=== PATIENT | male | born 1975 | race Caucasian/White ===

== ENCOUNTER 2020-10-14 04:49 | Emergency (ER) | payer OTHER ==
[~2020-10-14] VITALS: Ht 170.2 cm; Wt 59.1 kg
[2020-10-14] MEDS ORDERED: AMLO-258 PO (05:29)
[2020-10-14] MEDS ORDERED: METF-960 PO (05:29)
[2020-10-14 05:30] LABS: BASOPHILS % (AUTO) 0.5 % (0.0-2.0); HEMATOCRIT 38.4 % (41-53); HEMOGLOBIN 12.9 g/dL (13.5-17.5); LYMPHOCYTES # (AUTO) 2.4 K/uL (1.0-4.8); LYMPHOCYTES % (AUTO) 23.1 % (22.0-44.0); MEAN CORPUSCULAR HEMOGLOBIN 30.1 pg (26.0-34.0); MEAN CORPUSCULAR HGB CONC 33.7 G/dL (31.0-37.0); MEAN CORPUSCULAR VOLUME 90 fL (80-100); MONOCYTES # (AUTO) 0.6 K/uL (0.1-1.0); MONOCYTES % (AUTO) 5.4 % (2.0-9.0); NEUTROPHILS # (AUTO) 7.3 K/uL (1.8-7.7); PLATELET COUNT (AUTO) 472 K/uL (150-450); RED BLOOD CELL COUNT(AUTO) 4.28 MIL/uL (4.50-5.90); RED CELL DISTRIBUTION WIDTH 13.7 % (11.5-14.5)
[2020-10-14] MEDS ORDERED: SODIUM CHLORIDE 0.9% 1,000 ML IV ONE (05:30)
[2020-10-14 05:37] LABS: ACETONE,BLOOD NEGATIVE (NEGATIVE)
[2020-10-14 05:41] LABS: APPEARANCE,URINE CLEAR (CLEAR); BILIRUBIN,URINE NEGATIVE (NEGATIVE); GLUCOSE, URINE (UA) >=1000 mg/dL (NEGATIVE); KETONES,URINE TRACE mg/dL (NEGATIVE); LEUKOCYTE ESTERASE ,URINE NEGATIVE (NEGATIVE); NITRATE,URINE NEGATIVE (NEGATIVE); OCCULT BLOOD,URINE TRACE (NEGATIVE); PH,URINE 5.5 (5.0-8.0); PROTEIN,URINE SEE CONFIRM (NEGATIVE); UROBILINOGEN,URINE 0.2 mg/dL (<=1.0)
[2020-10-14 05:45] LABS: ALANINE AMINOTRANSFERASE 26 U/L (12-78); ALBUMIN 2.9 g/dL (3.4-5.0); ALKALINE PHOSPHATASE 156 U/L (46-116); ANION GAP 9 mmol/L (8-16); ASPARTATE AMINOTRANSFERASE 18 U/L (15-37); BILIRUBIN,TOTAL 0.2 mg/dL (0.1-1.0); CALCIUM, TOTAL 8.7 mg/dL (8.8-10.5); CARBON DIOXIDE 25 mmol/L (22-29); CHLORIDE 96 mmol/L (98-107); CREATININE 1.63 mg/dL (0.60-1.30); GLOMERULAR FILTR. RATE CALC 46 mL/min (>60); POTASSIUM 4.1 mmol/L (3.5-5.1); SODIUM SERUM 130 mmol/L (136-145); TOTAL PROTEIN, SERUM 7.2 g/dL (6.4-8.2); UREA NITROGEN, BLOOD 28 mg/dL (7-18)
[2020-10-14 05:52] LABS: GLUCOSE,RANDOM 547 mg/dL (70-110)
[2020-10-14 06:11] LABS: BACTERIA,URINE None Seen /HPF (None Seen); SQUAMOUS EPITHELIAL CELL,UR Rare /LPF (None Seen); WBC,URINE 0-2 /HPF (0-5)
[2020-10-14 06:12] LABS: SULFOSALICYLIC ACID,URINE 4+ (Negative)
[2020-10-14] MEDS ORDERED: INSULIN REGULAR, HUMAN 100 UNITS/ML IVP ONE (06:30)
[2020-10-14] MEDS ORDERED: AmLODIPine BESYLATE 5 MG TABLET PO ONE (07:00)
[2020-10-14] MEDS ORDERED: MetFORMIN HCL 500 MG TABLET PO ONE ×2 (07:00→07:45)
[2020-10-14 07:30] VITALS: BP 138/68
[2020-10-14 07:38] LABS: GLUCOSE,POINT OF CARE 308 MG/DL (70-110)
== END 2020-10-14 07:49 | disposition home or self-care (01) ==
LOC: EMS 04:55
DX: E11.65 Type 2 diabetes mellitus with hyperglycemia (principal); I10 Essential (primary) hypertension; N28.9 Disorder of kidney and ureter, unspecified; Z79.84 Long term (current) use of oral hypoglycemic drugs
CPT/HCPCS: 36415; 80053; 81001; 82009; 82962; 85025; 96361; 96374; 99284; J1815; 81002

== ENCOUNTER 2020-11-29 12:15 | Inpatient (IN) | payer OTHER ==
[~2020-11-29] VITALS: Ht 165.1 cm; Wt 70.5 kg
[~2020-11-29 12:15] MED LIST: AMLO-258 PO; METF-960 PO
[2020-11-29 13:13] LABS: BASOPHILS % (AUTO) 0.3 % (0.0-2.0); EOSINOPHILS % (AUTO) 2.4 % (1.0-6.0); HEMATOCRIT 31.7 % (41-53); HEMOGLOBIN 10.7 g/dL (13.5-17.5); LYMPHOCYTES # (AUTO) 1.8 K/uL (1.0-4.8); LYMPHOCYTES % (AUTO) 20.4 % (22.0-44.0); MEAN CORPUSCULAR HEMOGLOBIN 29.8 pg (26.0-34.0); MEAN CORPUSCULAR HGB CONC 33.8 G/dL (31.0-37.0); MEAN CORPUSCULAR VOLUME 88 fL (80-100); MONOCYTES # (AUTO) 0.6 K/uL (0.1-1.0); MONOCYTES % (AUTO) 6.3 % (2.0-9.0); NEUTROPHILS # (AUTO) 6.3 K/uL (1.8-7.7); NEUTROPHILS % (AUTO) 70.6 % (40.0-70.0); PLATELET COUNT (AUTO) 472 K/uL (150-450); RED BLOOD CELL COUNT(AUTO) 3.59 MIL/uL (4.50-5.90); RED CELL DISTRIBUTION WIDTH 12.9 % (11.5-14.5)
[2020-11-29 13:22] LABS: PROTHROMBIN TIME 10.2 SEC (9.4-11.6)
[2020-11-29 13:24] LABS: CALCIUM, TOTAL 8.2 mg/dL (8.8-10.5); CREATININE 1.37 mg/dL (0.60-1.30); POTASSIUM 4.6 mmol/L (3.5-5.1)
[2020-11-29 13:29] LABS: ALBUMIN 1.4 g/dL (3.4-5.0); BILIRUBIN,TOTAL 0.1 mg/dL (0.1-1.0); C-REACTIVE PROTEIN QUANT 0.18 mg/dL (0.00-0.30); TOTAL PROTEIN, SERUM 5.4 g/dL (6.4-8.2)
[2020-11-29 13:32] LABS: LACTIC ACID 0.5 mmol/L (0.4-2.0)
[2020-11-29] MEDS ORDERED: DOXYCYCLINE HYCLATE 100 MG in DEXTROSE 5%-WATER 100 ML IV ONE (13:45)
[2020-11-29] MEDS ORDERED: SODIUM CHLORIDE 0.9% 1,000 ML IV ONE (13:45)
[2020-11-29] MEDS ORDERED: 0.9% SODIUM CHLORIDE 10 ML SYRINGE IVP PRN ×2 (14:15→15:15)
[2020-11-29] MEDS ORDERED: ONDANSETRON HCL 4 MG/2 ML VIAL IVP PRN ×2 (14:15→15:15)
[2020-11-29] MEDS ORDERED: ACETAMINOPHEN 325 MG TABLET PO PRN ×2 (14:15→15:15)
[2020-11-29 15:09] LABS: COVID AG,FIA SOURCE NASOPHARYNGEAL
[2020-11-29] MEDS ORDERED: BISACODYL 10 MG RECTAL RECTAL SUPPOSITORY PR PRN (15:15)
[2020-11-29] MEDS ORDERED: DOCUSATE SODIUM 100 MG/10 ML LIQUID UDCUP PO PRN (15:15)
[2020-11-29] MEDS ORDERED: DEXTROSE 50%-WATER 25 GM/50 ML SYRINGE IVP PRN (15:15)
[2020-11-29] MEDS ORDERED: IPRATROPIUM BROMIDE 0.5 MG/2.5 ML NEB SOLUTION NEB PRN (15:15)
[2020-11-29] MEDS ORDERED: ALBUTEROL SULFATE 2.5 MG/0.5 ML NEB SOLUTION NEB PRN (15:15)
[2020-11-29] MEDS ORDERED: MAGNESIUM HYDROXIDE SUSPENSION 30 ML UDCUP PO PRN (15:15)
[2020-11-29] MEDS ORDERED: VANCOMYCIN HCL 1.5 GM in DEXTROSE 5%-WATER 250 ML IV ONE (16:00)
[2020-11-29 16:07] VITALS: BP 157/80
[2020-11-29] MEDS: SODIUM CHLORIDE 0.9% 1,000 ML IV SCH (16:37)
[2020-11-29] MEDS: HEPARIN SODIUM,PORCINE 5,000 UNITS/ML VIAL SQ SCH (16:37)
[2020-11-29] MEDS: INSULIN LISPRO 100 UNITS/ML SQ PRN ×2 (18:01→20:49)
[2020-11-29 19:52] VITALS: BP 127/74
[2020-11-29] MEDS: CefTRIAXone 1 GM/DEXTROSE 50 ML IV SCH (20:18)
[2020-11-29 21:13] LABS: GLUCOMETER DEV NAME(LOC) 6S.1; GLUCOSE,POINT OF CARE 253 MG/DL (70-110)
[2020-11-29 21:13] LABS: GLUCOMETER DEV NAME(LOC) 6S.1; GLUCOSE,POINT OF CARE 179 MG/DL (70-110)
[2020-11-30] MEDS: HEPARIN SODIUM,PORCINE 5,000 UNITS/ML VIAL SQ SCH ×4 (00:11→23:45)
[2020-11-30 05:13] VITALS: BP 150/82
[2020-11-30] MEDS: INSULIN LISPRO 100 UNITS/ML SQ PRN ×5 (06:01→21:03)
[2020-11-30 06:43] LABS: GLUCOMETER DEV NAME(LOC) 6S.1; GLUCOSE,POINT OF CARE 171 MG/DL (70-110)
[2020-11-30 06:44] LABS: BASOPHILS % (AUTO) 0.4 % (0.0-2.0); EOSINOPHILS % (AUTO) 2.8 % (1.0-6.0); HEMATOCRIT 30.4 % (41-53); HEMOGLOBIN 10.4 g/dL (13.5-17.5); LYMPHOCYTES # (AUTO) 2.4 K/uL (1.0-4.8); LYMPHOCYTES % (AUTO) 28.9 % (22.0-44.0); MEAN CORPUSCULAR HEMOGLOBIN 29.9 pg (26.0-34.0); MEAN CORPUSCULAR HGB CONC 34.1 G/dL (31.0-37.0); MEAN CORPUSCULAR VOLUME 88 fL (80-100); MONOCYTES # (AUTO) 0.6 K/uL (0.1-1.0); MONOCYTES % (AUTO) 6.8 % (2.0-9.0); NEUTROPHILS # (AUTO) 5.2 K/uL (1.8-7.7); NEUTROPHILS % (AUTO) 61.1 % (40.0-70.0); PLATELET COUNT (AUTO) 440 K/uL (150-450); RED BLOOD CELL COUNT(AUTO) 3.47 MIL/uL (4.50-5.90); RED CELL DISTRIBUTION WIDTH 12.9 % (11.5-14.5)
[2020-11-30 06:57] LABS: ALANINE AMINOTRANSFERASE 13 U/L (12-78); ALBUMIN 1.3 g/dL (3.4-5.0); ALKALINE PHOSPHATASE 89 U/L (46-116); ANION GAP 6 mmol/L (8-16); ASPARTATE AMINOTRANSFERASE 15 U/L (15-37); BILIRUBIN,TOTAL 0.1 mg/dL (0.1-1.0); CALCIUM, TOTAL 7.8 mg/dL (8.8-10.5); CARBON DIOXIDE 27 mmol/L (22-29); CHLORIDE 111 mmol/L (98-107); CREATININE 1.06 mg/dL (0.60-1.30); GLOMERULAR FILTR. RATE CALC > 60 mL/min (>60); GLUCOSE,RANDOM 170 mg/dL (70-110); POTASSIUM 4.3 mmol/L (3.5-5.1); SODIUM SERUM 144 mmol/L (136-145); TOTAL PROTEIN, SERUM 5.1 g/dL (6.4-8.2); UREA NITROGEN, BLOOD 18 mg/dL (7-18)
[2020-11-30] MEDS ORDERED: VANCOMYCIN HCL 1 GM/D5% WATER 200 ML IV SCH (08:00)
[2020-11-30] MEDS: SODIUM CHLORIDE 0.9% 1,000 ML IV SCH ×2 (08:01→23:45)
[2020-11-30] MEDS: AmLODIPine BESYLATE 10 MG TABLET PO SCH (08:02)
[2020-11-30] MEDS: PANTOPRAZOLE SODIUM 40 MG DR TABLET PO SCH (08:02)
[2020-11-30 08:15] VITALS: BP 170/93
[2020-11-30 09:00] VITALS: BP 143/71
[2020-11-30 12:15] LABS: GLUCOMETER DEV NAME(LOC) 6N.1; GLUCOSE,POINT OF CARE 267 MG/DL (70-110)
[2020-11-30] MEDS: LISINOPRIL 5 MG TABLET PO SCH (12:30)
[2020-11-30] MEDS: VANCOMYCIN HCL 750 MG in DEXTROSE 5%-WATER 250 ML IV SCH ×2 (15:34→23:46)
[2020-11-30] MEDS: CefTRIAXone 1 GM/DEXTROSE 50 ML IV SCH (16:58)
[2020-11-30 18:31] LABS: GLUCOMETER DEV NAME(LOC) 6N.1; GLUCOSE,POINT OF CARE 315 MG/DL (70-110)
[2020-11-30 21:39] LABS: GLUCOMETER DEV NAME(LOC) 6N.1; GLUCOSE,POINT OF CARE 283 MG/DL (70-110)
[2020-12-01 04:31] VITALS: BP 144/68
[2020-12-01] MEDS: INSULIN LISPRO 100 UNITS/ML SQ PRN ×4 (05:35→20:12)
[2020-12-01 06:45] LABS: GLUCOMETER DEV NAME(LOC) 6S.1; GLUCOSE,POINT OF CARE 154 MG/DL (70-110)
[2020-12-01 07:15] LABS: BASOPHILS % (AUTO) 1.1 % (0.0-2.0); EOSINOPHILS % (AUTO) 2.7 % (1.0-6.0); HEMOGLOBIN 10.6 g/dL (13.5-17.5); LYMPHOCYTES # (AUTO) 2.7 K/uL (1.0-4.8); LYMPHOCYTES % (AUTO) 29.7 % (22.0-44.0); MEAN CORPUSCULAR HEMOGLOBIN 29.9 pg (26.0-34.0); MEAN CORPUSCULAR HGB CONC 34.3 G/dL (31.0-37.0); MEAN CORPUSCULAR VOLUME 87 fL (80-100); MONOCYTES # (AUTO) 0.5 K/uL (0.1-1.0); MONOCYTES % (AUTO) 5.5 % (2.0-9.0); NEUTROPHILS # (AUTO) 5.6 K/uL (1.8-7.7); PLATELET COUNT (AUTO) 437 K/uL (150-450); RED BLOOD CELL COUNT(AUTO) 3.56 MIL/uL (4.50-5.90); RED CELL DISTRIBUTION WIDTH 12.6 % (11.5-14.5)
[2020-12-01 07:59] LABS: ANION GAP 6 mmol/L (8-16); CALCIUM, TOTAL 7.8 mg/dL (8.8-10.5); CARBON DIOXIDE 24 mmol/L (22-29); CHLORIDE 109 mmol/L (98-107); CREATININE 1.14 mg/dL (0.60-1.30); GLOMERULAR FILTR. RATE CALC > 60 mL/min (>60); GLUCOSE,RANDOM 153 mg/dL (70-110); POTASSIUM 3.8 mmol/L (3.5-5.1); SODIUM SERUM 139 mmol/L (136-145); UREA NITROGEN, BLOOD 16 mg/dL (7-18); VANCOMYCIN,RANDOM 24.5 mcg/mL (25.0-50.0)
[2020-12-01 08:24] VITALS: BP 146/73
[2020-12-01] MEDS: ASCORBIC ACID 500 MG TABLET PO SCH (08:43)
[2020-12-01] MEDS: HEPARIN SODIUM,PORCINE 5,000 UNITS/ML VIAL SQ SCH ×3 (08:43→23:22)
[2020-12-01] MEDS: LISINOPRIL 5 MG TABLET PO SCH (08:43)
[2020-12-01] MEDS: PANTOPRAZOLE SODIUM 40 MG DR TABLET PO SCH (08:43)
[2020-12-01] MEDS: AmLODIPine BESYLATE 10 MG TABLET PO SCH (08:43)
[2020-12-01] MEDS: VANCOMYCIN HCL 750 MG in DEXTROSE 5%-WATER 250 ML IV SCH (08:44)
[2020-12-01 14:04] LABS: GLUCOMETER DEV NAME(LOC) 6S.1; GLUCOSE,POINT OF CARE 394 MG/DL (70-110)
[2020-12-01] MEDS: CefTRIAXone 1 GM/DEXTROSE 50 ML IV SCH (16:02)
[2020-12-01] MEDS: SODIUM CHLORIDE 0.9% 1,000 ML IV SCH ×2 (16:02→20:35)
[2020-12-01] MEDS: VANCOMYCIN HCL 1 GM/D5% WATER 200 ML IV SCH (20:05)
[2020-12-01 20:10] VITALS: BP 153/87
[2020-12-01 22:02] LABS: GLUCOMETER DEV NAME(LOC) 6N.1; GLUCOSE,POINT OF CARE 191 MG/DL (70-110)
[2020-12-01 23:12] LABS: GLUCOMETER DEV NAME(LOC) 6S.1; GLUCOSE,POINT OF CARE 235 MG/DL (70-110)
[2020-12-02 04:53] LABS: BASOPHILS % (AUTO) 0.4 % (0.0-2.0); EOSINOPHILS % (AUTO) 3.5 % (1.0-6.0); HEMATOCRIT 30.1 % (41-53); HEMOGLOBIN 10.4 g/dL (13.5-17.5); LYMPHOCYTES # (AUTO) 2.7 K/uL (1.0-4.8); LYMPHOCYTES % (AUTO) 32.1 % (22.0-44.0); MEAN CORPUSCULAR HEMOGLOBIN 30.3 pg (26.0-34.0); MEAN CORPUSCULAR HGB CONC 34.6 G/dL (31.0-37.0); MEAN CORPUSCULAR VOLUME 88 fL (80-100); MONOCYTES # (AUTO) 0.6 K/uL (0.1-1.0); MONOCYTES % (AUTO) 6.7 % (2.0-9.0); NEUTROPHILS # (AUTO) 4.8 K/uL (1.8-7.7); NEUTROPHILS % (AUTO) 57.3 % (40.0-70.0); PLATELET COUNT (AUTO) 427 K/uL (150-450); RED BLOOD CELL COUNT(AUTO) 3.43 MIL/uL (4.50-5.90); RED CELL DISTRIBUTION WIDTH 12.9 % (11.5-14.5)
[2020-12-02 05:00] LABS: ANION GAP 4 mmol/L (8-16); CALCIUM, TOTAL 7.7 mg/dL (8.8-10.5); CARBON DIOXIDE 27 mmol/L (22-29); CHLORIDE 109 mmol/L (98-107); CREATININE 1.17 mg/dL (0.60-1.30); GLOMERULAR FILTR. RATE CALC > 60 mL/min (>60); GLUCOSE,RANDOM 243 mg/dL (70-110); POTASSIUM 4.6 mmol/L (3.5-5.1); SODIUM SERUM 140 mmol/L (136-145); UREA NITROGEN, BLOOD 17 mg/dL (7-18)
[2020-12-02 05:33] VITALS: BP 146/84
[2020-12-02] MEDS: INSULIN LISPRO 100 UNITS/ML SQ PRN ×4 (05:34→20:02)
[2020-12-02 06:46] LABS: GLUCOMETER DEV NAME(LOC) 6S.1; GLUCOSE,POINT OF CARE 228 MG/DL (70-110)
[2020-12-02 07:30] VITALS: BP 158/83
[2020-12-02] MEDS: HEPARIN SODIUM,PORCINE 5,000 UNITS/ML VIAL SQ SCH ×3 (07:54→23:30)
[2020-12-02] MEDS: VANCOMYCIN HCL 1 GM/D5% WATER 200 ML IV SCH ×2 (07:55→20:01)
[2020-12-02] MEDS: SODIUM CHLORIDE 0.9% 1,000 ML IV SCH ×2 (07:55→23:30)
[2020-12-02] MEDS: AmLODIPine BESYLATE 10 MG TABLET PO SCH (08:00)
[2020-12-02] MEDS: LISINOPRIL 5 MG TABLET PO SCH ×2 (08:00→20:01)
[2020-12-02] MEDS: ASCORBIC ACID 500 MG TABLET PO SCH (08:00)
[2020-12-02] MEDS: PANTOPRAZOLE SODIUM 40 MG DR TABLET PO SCH (08:00)
[2020-12-02] MEDS: INSULIN GLARGINE,HUM.REC.ANLOG 100 UNITS/ML SQ SCH (08:01)
[2020-12-02 13:46] LABS: GLUCOMETER DEV NAME(LOC) 6S.1; GLUCOSE,POINT OF CARE 295 MG/DL (70-110)
[2020-12-02] MEDS: CefTRIAXone 1 GM/DEXTROSE 50 ML IV SCH (16:31)
[2020-12-02 19:04] VITALS: BP 142/78
[2020-12-02 19:22] LABS: GLUCOMETER DEV NAME(LOC) 6N.1; GLUCOSE,POINT OF CARE 235 MG/DL (70-110)
[2020-12-02 21:51] LABS: GLUCOMETER DEV NAME(LOC) 6N.1; GLUCOSE,POINT OF CARE 207 MG/DL (70-110)
[2020-12-03 04:32] VITALS: BP 150/80
[2020-12-03] MEDS: INSULIN LISPRO 100 UNITS/ML SQ PRN ×2 (05:55→11:42)
[2020-12-03 06:57] LABS: ANION GAP 7 mmol/L (8-16); CALCIUM, TOTAL 7.7 mg/dL (8.8-10.5); CARBON DIOXIDE 25 mmol/L (22-29); CHLORIDE 109 mmol/L (98-107); CREATININE 1.09 mg/dL (0.60-1.30); GLOMERULAR FILTR. RATE CALC > 60 mL/min (>60); GLUCOSE,RANDOM 207 mg/dL (70-110); POTASSIUM 3.9 mmol/L (3.5-5.1); SODIUM SERUM 141 mmol/L (136-145); UREA NITROGEN, BLOOD 23 mg/dL (7-18)
[2020-12-03 07:08] LABS: GLUCOMETER DEV NAME(LOC) 6N.1; GLUCOSE,POINT OF CARE 201 MG/DL (70-110)
[2020-12-03 08:34] VITALS: BP 145/68
[2020-12-03] MEDS: LISINOPRIL 5 MG TABLET PO SCH (08:50)
[2020-12-03] MEDS: HEPARIN SODIUM,PORCINE 5,000 UNITS/ML VIAL SQ SCH (08:50)
[2020-12-03] MEDS: ASCORBIC ACID 500 MG TABLET PO SCH (08:51)
[2020-12-03] MEDS: VANCOMYCIN HCL 1 GM/D5% WATER 200 ML IV SCH (08:51)
[2020-12-03] MEDS: PANTOPRAZOLE SODIUM 40 MG DR TABLET PO SCH (08:51)
[2020-12-03] MEDS: AmLODIPine BESYLATE 10 MG TABLET PO SCH (08:51)
[2020-12-03] MEDS: INSULIN GLARGINE,HUM.REC.ANLOG 100 UNITS/ML SQ SCH (08:53)
[2020-12-03] MEDS: SODIUM CHLORIDE 0.9% 1,000 ML IV SCH (13:01)
[2020-12-03] MEDS ORDERED: LISI-892 PO (13:57)
[2020-12-03] MEDS ORDERED: ASCO500 PO (13:57)
[2020-12-03] MEDS ORDERED: ACET-2247 PO (13:58)
[2020-12-03] MEDS ORDERED: DOXY-354 PO (13:59)
[2020-12-03] MEDS ORDERED: CEPH500C3 PO (13:59)
[2020-12-03 20:07] LABS: GLUCOMETER DEV NAME(LOC) 6S.1; GLUCOSE,POINT OF CARE 249 MG/DL (70-110)
== END 2020-12-03 14:40 | DRG 602 ==
LOC: EDUNIT# 12:15 → EMS 12:27 → 6S 14:32
PROVIDERS: ADMIT Internal Medicine; ATTEND Internal Medicine
DX: L03.116 Cellulitis of left lower limb (principal); E43 Unspecified severe protein-calorie malnutrition; N17.9 Acute kidney failure, unspecified; E11.65 Type 2 diabetes mellitus with hyperglycemia; Z20.822 Contact with and (suspected) exposure to COVID-19; D63.8 Anemia in other chronic diseases classified elsewhere; I11.9 Hypertensive heart disease without heart failure; Z68.25 Body mass index [BMI] 25.0-25.9, adult; Z79.84 Long term (current) use of oral hypoglycemic drugs
CPT/HCPCS: 80048; 80053; 80202; 82962; 83605; 84145; 85025; 85610; 86140; 93971; 96365; 99285; J0696; J1644; J1815; J3370; J3490; J7030; J7060

== ENCOUNTER 2021-06-28 14:45 | Inpatient (IN) | payer OTHER ==
[~2021-06-28] VITALS: Ht 160 cm; Wt 86.9 kg
[~2021-06-28 14:45] MED LIST changes: +ACET-2247 PO; +ASCO500 PO; +CEPH500C3 PO; +DOXY-354 PO; +LISI-892 PO; +METF-1211 PO; -METF-960 PO
[2021-06-28] MEDS ORDERED: GLUCAGON,HUMAN RECOMBINANT 1 MG VIAL IM PRN (15:30)
[2021-06-28] MEDS ORDERED: ONDANSETRON HCL 4 MG/2 ML VIAL IVP PRN (15:45)
[2021-06-28] MEDS ORDERED: ACETAMINOPHEN 325 MG TABLET PO PRN (15:45)
[2021-06-28 16:03] VITALS: BP 160/97
[2021-06-28] MEDS: HEPARIN SODIUM,PORCINE 5,000 UNITS/ML VIAL SQ SCH (16:23)
[2021-06-28] MEDS: LOSARTAN POTASSIUM 25 MG TABLET PO SCH (16:23)
[2021-06-28] MEDS ORDERED: INFLUENZA VIRUS VACCINE QVS 2021-22 (6MO+)/PF 60 MCG/0.5 ML SYRINGE IM. ONE (18:00)
[2021-06-28] MEDS ORDERED: PNEUMOCOCCAL VACCINE POLYVALENT 0.5 ML VIAL [PPSV23] IM. ONE (18:00)
[2021-06-28 18:19] LABS: CALCIUM, TOTAL 7.8 mg/dL (8.8-10.5); CREATININE 1.8 mg/dL (0.60-1.30)
[2021-06-28 19:11] LABS: GLUCOMETER DEV NAME(LOC) 6N.1; GLUCOSE,POINT OF CARE 92 MG/DL (70-110)
[2021-06-28] MEDS ORDERED: SODIUM CHLORIDE 0.9% 1,000 ML ONE (20:21)
[2021-06-28] MEDS: DOCUSATE SODIUM 100 MG CAPSULE PO SCH (20:24)
[2021-06-28] MEDS: LABETALOL HCL 100 MG TABLET PO SCH ×2 (20:24→20:25)
[2021-06-28] MEDS ORDERED: POTASSIUM CHLORIDE 20 MEQ ER TABLET PO PRN (20:30)
[2021-06-28 20:37] VITALS: BP 173/93
[2021-06-28] MEDS: POTASSIUM CHL 10 MEQ/WATER 50 ML IV PRN ×4 (20:41→22:46)
[2021-06-29] MEDS: HEPARIN SODIUM,PORCINE 5,000 UNITS/ML VIAL SQ SCH ×4 (00:38→23:34)
[2021-06-29 04:18] VITALS: BP 189/100
[2021-06-29] MEDS: LABETALOL HCL 100 MG TABLET PO SCH ×2 (05:16→20:50)
[2021-06-29] MEDS: LOSARTAN POTASSIUM 25 MG TABLET PO SCH (05:18)
[2021-06-29] MEDS: INSULIN LISPRO 100 UNITS/ML SQ PRN ×4 (05:25→20:45)
[2021-06-29 06:16] LABS: BASOPHILS % (AUTO) 0.8 % (0.0-2.0); EOSINOPHILS % (AUTO) 5.3 % (1.0-6.0); HEMATOCRIT 26.9 % (41-53); HEMOGLOBIN 9.1 g/dL (13.5-17.5); LYMPHOCYTES # (AUTO) 1.7 K/uL (1.0-4.8); LYMPHOCYTES % (AUTO) 31.2 % (22.0-44.0); MEAN CORPUSCULAR HEMOGLOBIN 28.9 pg (26.0-34.0); MEAN CORPUSCULAR HGB CONC 33.7 G/dL (31.0-37.0); MEAN CORPUSCULAR VOLUME 86 fL (80-100); MONOCYTES # (AUTO) 0.3 K/uL (0.1-1.0); MONOCYTES % (AUTO) 6.1 % (2.0-9.0); NEUTROPHILS # (AUTO) 3.1 K/uL (1.8-7.7); NEUTROPHILS % (AUTO) 56.6 % (40.0-70.0); PLATELET COUNT (AUTO) 387 K/uL (150-450); RED BLOOD CELL COUNT(AUTO) 3.14 MIL/uL (4.50-5.90); RED CELL DISTRIBUTION WIDTH 14.7 % (11.5-14.5)
[2021-06-29 06:31] LABS: CALCIUM, TOTAL 7.8 mg/dL (8.8-10.5); CREATININE 1.92 mg/dL (0.60-1.30); MAGNESIUM 2.2 mg/dL (1.80-2.40); PHOSPHORUS 4.3 mg/dL (2.5-4.9); POTASSIUM 3.5 mmol/L (3.5-5.1)
[2021-06-29 06:48] LABS: HEMOGLOBIN A1C 8.6 % (3.8-5.6)
[2021-06-29 07:36] LABS: GLUCOMETER DEV NAME(LOC) 6N.1; GLUCOSE,POINT OF CARE 168 MG/DL (70-110)
[2021-06-29 07:39] LABS: SODIUM,URINE RANDOM 46 mmol/l (20-110); UREA NITROGEN,URINE RANDOM 421 mg/dL (350-1000)
[2021-06-29 07:52] LABS: PROTEIN,URINE RANDOM 787 mg/dL (0-11.9)
[2021-06-29 08:05] LABS: BILIRUBIN,URINE NEGATIVE (NEGATIVE); GLUCOSE, URINE (UA) >=1000 mg/dL (NEGATIVE); KETONES,URINE NEGATIVE (NEGATIVE); LEUKOCYTE ESTERASE ,URINE NEGATIVE (NEGATIVE); NITRATE,URINE NEGATIVE (NEGATIVE); OCCULT BLOOD,URINE LARGE (NEGATIVE); PROTEIN,URINE SEE CONFIRM (NEGATIVE); UROBILINOGEN,URINE 0.2 mg/dL (<=1.0)
[2021-06-29 08:06] LABS: APPEARANCE,URINE SLIGHTLY CLOUDY (CLEAR)
[2021-06-29] MEDS: DOCUSATE SODIUM 100 MG CAPSULE PO SCH ×2 (08:45→20:48)
[2021-06-29] MEDS: FAMOTIDINE 20 MG TABLET PO SCH (08:45)
[2021-06-29 09:09] LABS: BACTERIA,URINE Many /HPF (None Seen); RBC,URINE 26-50 /HPF (0-2); SULFOSALICYLIC ACID,URINE 4+ (Negative); WBC,URINE 0-2 /HPF (0-5)
[2021-06-29 09:10] LABS: RENAL EPITHELIAL CELLS,URINE Few /LPF (None Seen)
[2021-06-29 09:18] VITALS: BP 140/72
[2021-06-29 15:36] LABS: GLUCOMETER DEV NAME(LOC) 4E.2; GLUCOSE,POINT OF CARE 183 MG/DL (70-110)
[2021-06-29 16:30] VITALS: BP 184/87
[2021-06-29 19:51] LABS: GLUCOMETER DEV NAME(LOC) 6N.2; GLUCOSE,POINT OF CARE 195 MG/DL (70-110)
[2021-06-29 19:55] VITALS: BP 199/103
[2021-06-29] MEDS: BUMETANIDE 0.25 MG/ML 10 ML VIAL IVP SCH (20:47)
[2021-06-29 21:31] LABS: GLUCOMETER DEV NAME(LOC) 6N.2; GLUCOSE,POINT OF CARE 195 MG/DL (70-110)
[2021-06-30 04:50] VITALS: BP 191/95
[2021-06-30] MEDS: LOSARTAN POTASSIUM 25 MG TABLET PO SCH (05:54)
[2021-06-30 06:17] LABS: GLUCOMETER DEV NAME(LOC) 4E.2; GLUCOSE,POINT OF CARE 133 MG/DL (70-110)
[2021-06-30 08:21] VITALS: BP 195/107
[2021-06-30] MEDS: HEPARIN SODIUM,PORCINE 5,000 UNITS/ML VIAL SQ SCH ×2 (09:15→16:38)
[2021-06-30] MEDS: FAMOTIDINE 20 MG TABLET PO SCH (09:15)
[2021-06-30] MEDS: LABETALOL HCL 100 MG TABLET PO SCH ×2 (09:15→20:43)
[2021-06-30] MEDS: DOCUSATE SODIUM 100 MG CAPSULE PO SCH ×2 (09:15→20:43)
[2021-06-30] MEDS: BUMETANIDE 0.25 MG/ML 10 ML VIAL IVP SCH ×2 (09:15→20:43)
[2021-06-30 11:05] LABS: PROTHROMBIN TIME 10.3 SEC (9.4-11.6)
[2021-06-30 11:22] VITALS: BP 187/89
[2021-06-30] MEDS: CloNIDine HCL 0.1 MG TABLET PO PRN (11:28)
[2021-06-30] MEDS: INSULIN LISPRO 100 UNITS/ML SQ PRN ×3 (11:30→20:54)
[2021-06-30 14:36] LABS: GLUCOMETER DEV NAME(LOC) 6N.2; GLUCOSE,POINT OF CARE 222 MG/DL (70-110)
[2021-06-30 16:13] VITALS: BP 164/90
[2021-06-30 19:46] LABS: GLUCOMETER DEV NAME(LOC) 6N.2; GLUCOSE,POINT OF CARE 221 MG/DL (70-110)
[2021-06-30 19:57] VITALS: BP 152/81
[2021-06-30 21:06] LABS: GLUCOMETER DEV NAME(LOC) 6N.1; GLUCOSE,POINT OF CARE 191 MG/DL (70-110)
[2021-07-01 04:45] VITALS: BP 185/94
[2021-07-01 07:36] LABS: GLUCOMETER DEV NAME(LOC) 4E.2; GLUCOSE,POINT OF CARE 156 MG/DL (70-110)
[2021-07-01 07:53] VITALS: BP 184/89
[2021-07-01] MEDS: HEPARIN SODIUM,PORCINE 5,000 UNITS/ML VIAL SQ SCH ×3 (08:00→17:28)
[2021-07-01] MEDS: LABETALOL HCL 100 MG TABLET PO SCH ×2 (10:19→20:16)
[2021-07-01] MEDS: FAMOTIDINE 20 MG TABLET PO SCH (10:19)
[2021-07-01] MEDS: BUMETANIDE 0.25 MG/ML 10 ML VIAL IVP SCH ×2 (10:19→20:15)
[2021-07-01] MEDS: DOCUSATE SODIUM 100 MG CAPSULE PO SCH ×2 (10:19→20:16)
[2021-07-01] MEDS: LOSARTAN POTASSIUM 25 MG TABLET PO SCH (10:19)
[2021-07-01 15:11] LABS: GLUCOMETER DEV NAME(LOC) 4E.2; GLUCOSE,POINT OF CARE 137 MG/DL (70-110)
[2021-07-01] MEDS: INSULIN LISPRO 100 UNITS/ML SQ PRN ×2 (17:17→20:16)
[2021-07-01 18:41] LABS: GLUCOMETER DEV NAME(LOC) 6N.2; GLUCOSE,POINT OF CARE 183 MG/DL (70-110)
[2021-07-01 19:10] VITALS: BP 173/94
[2021-07-02 02:50] LABS: GLUCOMETER DEV NAME(LOC) 6N.1; GLUCOSE,POINT OF CARE 180 MG/DL (70-110)
[2021-07-02 04:06] LABS: HEPATITIS C AB (EIA) <0.1 s/co ratio (0.0-0.9); HIV 1-2 SCREEN 4TH GEN W/RFLX Non Reactive (Non Reactive)
[2021-07-02 04:30] VITALS: BP 190/99
[2021-07-02] MEDS: CloNIDine HCL 0.1 MG TABLET PO PRN (06:18)
[2021-07-02] MEDS: INSULIN LISPRO 100 UNITS/ML SQ PRN ×3 (06:38→21:53)
[2021-07-02 07:17] LABS: BASOPHILS % (AUTO) 0.5 % (0.0-2.0); EOSINOPHILS % (AUTO) 5.9 % (1.0-6.0); HEMATOCRIT 28.5 % (41-53); HEMOGLOBIN 9.6 g/dL (13.5-17.5); LYMPHOCYTES # (AUTO) 1.6 K/uL (1.0-4.8); LYMPHOCYTES % (AUTO) 25.3 % (22.0-44.0); MEAN CORPUSCULAR HEMOGLOBIN 28.8 pg (26.0-34.0); MEAN CORPUSCULAR HGB CONC 33.7 G/dL (31.0-37.0); MEAN CORPUSCULAR VOLUME 85 fL (80-100); MONOCYTES # (AUTO) 0.4 K/uL (0.1-1.0); MONOCYTES % (AUTO) 6.9 % (2.0-9.0); NEUTROPHILS % (AUTO) 61.4 % (40.0-70.0); PLATELET COUNT (AUTO) 370 K/uL (150-450); RED BLOOD CELL COUNT(AUTO) 3.34 MIL/uL (4.50-5.90); RED CELL DISTRIBUTION WIDTH 14.8 % (11.5-14.5)
[2021-07-02 07:21] LABS: GLUCOMETER DEV NAME(LOC) 6N.2; GLUCOSE,POINT OF CARE 167 MG/DL (70-110)
[2021-07-02 07:27] LABS: CALCIUM, TOTAL 8.1 mg/dL (8.8-10.5); CREATININE 2.02 mg/dL (0.60-1.30)
[2021-07-02] MEDS: HEPARIN SODIUM,PORCINE 5,000 UNITS/ML VIAL SQ SCH ×3 (07:43→18:02)
[2021-07-02] MEDS: DOCUSATE SODIUM 100 MG CAPSULE PO SCH ×2 (08:25→22:01)
[2021-07-02] MEDS: LABETALOL HCL 100 MG TABLET PO SCH ×2 (08:25→22:00)
[2021-07-02] MEDS: LOSARTAN POTASSIUM 25 MG TABLET PO SCH (08:25)
[2021-07-02] MEDS: FAMOTIDINE 20 MG TABLET PO SCH (08:25)
[2021-07-02] MEDS: BUMETANIDE 0.25 MG/ML 10 ML VIAL IVP SCH ×2 (08:26→22:01)
[2021-07-02 09:16] VITALS: BP 180/89
[2021-07-02 12:41] LABS: GLUCOMETER DEV NAME(LOC) 4E.2; GLUCOSE,POINT OF CARE 140 MG/DL (70-110)
[2021-07-02] MEDS ORDERED: GELATIN SPONGE,ABSORBABLE 12-7 MM TP ONE (13:00)
[2021-07-02] MEDS ORDERED: FentaNYL CITRATE PF 100 MCG/2 ML VIAL ONE (13:05)
[2021-07-02] MEDS ORDERED: FLUMAZENIL 0.1 MG/ML 5 ML VIAL IVP ONE (13:05)
[2021-07-02] MEDS ORDERED: NALOXONE HCL 0.4 MG/ML VIAL ONE (13:05)
[2021-07-02] MEDS ORDERED: MIDAZOLAM HCL 2 MG/2 ML VIAL ONE (13:05)
[2021-07-02] MEDS ORDERED: LIDOCAINE/PF 1% 30 ML VIAL ONE (13:06)
[2021-07-02] MEDS ORDERED: METOPROLOL TARTRATE 5 MG/5 ML VIAL ONE ×3 (13:55→14:11)
[2021-07-02] MEDS ORDERED: FentaNYL CITRATE PF 100 MCG/2 ML VIAL IVP ONE ×2 (15:15)
[2021-07-02] MEDS ORDERED: METOPROLOL TARTRATE 5 MG/5 ML VIAL IVP PRN (15:15)
[2021-07-02] MEDS ORDERED: MIDAZOLAM HCL 2 MG/2 ML VIAL IVP ONE ×2 (15:15)
[2021-07-02 15:45] VITALS: BP 144/77
[2021-07-02 17:47] LABS: GLUCOMETER DEV NAME(LOC) 6N.2; GLUCOSE,POINT OF CARE 157 MG/DL (70-110)
[2021-07-02] MEDS: CloNIDine HCL 0.1 MG TABLET PO SCH (22:00)
[2021-07-02] MEDS: LOSARTAN POTASSIUM 50 MG TABLET PO SCH (22:12)
[2021-07-02 22:21] LABS: GLUCOMETER DEV NAME(LOC) 6N.2; GLUCOSE,POINT OF CARE 259 MG/DL (70-110)
[2021-07-03] MEDS: INSULIN LISPRO 100 UNITS/ML SQ PRN ×3 (06:20→17:15)
[2021-07-03 06:31] LABS: GLUCOMETER DEV NAME(LOC) 6N.2; GLUCOSE,POINT OF CARE 152 MG/DL (70-110)
[2021-07-03 07:34] VITALS: BP 154/78
[2021-07-03] MEDS: DOCUSATE SODIUM 100 MG CAPSULE PO SCH ×2 (08:11→21:48)
[2021-07-03] MEDS: LOSARTAN POTASSIUM 50 MG TABLET PO SCH (08:12)
[2021-07-03] MEDS: CloNIDine HCL 0.1 MG TABLET PO SCH ×2 (08:12→21:48)
[2021-07-03] MEDS: FAMOTIDINE 20 MG TABLET PO SCH (08:12)
[2021-07-03] MEDS: HEPARIN SODIUM,PORCINE 5,000 UNITS/ML VIAL SQ SCH ×3 (08:12→16:26)
[2021-07-03] MEDS: LABETALOL HCL 100 MG TABLET PO SCH (08:12)
[2021-07-03] MEDS: BUMETANIDE 0.25 MG/ML 10 ML VIAL IVP SCH ×2 (08:15→21:48)
[2021-07-03 11:43] LABS: GLUCOMETER DEV NAME(LOC) 6N.2; GLUCOSE,POINT OF CARE 198 MG/DL (70-110)
[2021-07-03] MEDS: CloNIDine HCL 0.1 MG TABLET PO PRN (15:29)
[2021-07-03 15:31] VITALS: BP 183/81
[2021-07-03 16:40] VITALS: BP 180/94
[2021-07-03 17:36] LABS: GLUCOMETER DEV NAME(LOC) 4E.2; GLUCOSE,POINT OF CARE 234 MG/DL (70-110)
[2021-07-03] MEDS: HydrALAZINE HCL 25 MG TABLET PO SCH ×2 (17:58→21:48)
[2021-07-03 18:04] VITALS: BP 154/84
[2021-07-03 20:17] VITALS: BP 153/84
[2021-07-04] MEDS: HEPARIN SODIUM,PORCINE 5,000 UNITS/ML VIAL SQ SCH ×2 (00:46→10:32)
[2021-07-04 04:47] VITALS: BP 155/87
[2021-07-04] MEDS: LABETALOL HCL 100 MG TABLET PO SCH ×2 (05:31→10:32)
[2021-07-04] MEDS: LOSARTAN POTASSIUM 50 MG TABLET PO SCH ×2 (05:31→10:31)
[2021-07-04] MEDS: INSULIN LISPRO 100 UNITS/ML SQ PRN ×2 (05:39→12:10)
[2021-07-04 06:12] LABS: GLUCOMETER DEV NAME(LOC) 6N.2; GLUCOSE,POINT OF CARE 249 MG/DL (70-110)
[2021-07-04] MEDS: HydrALAZINE HCL 25 MG TABLET PO SCH (10:31)
[2021-07-04] MEDS: DOCUSATE SODIUM 100 MG CAPSULE PO SCH (10:31)
[2021-07-04] MEDS: CloNIDine HCL 0.1 MG TABLET PO SCH (10:32)
[2021-07-04] MEDS: FAMOTIDINE 20 MG TABLET PO SCH (10:32)
[2021-07-04] MEDS: BUMETANIDE 0.25 MG/ML 10 ML VIAL IVP SCH (11:01)
[2021-07-04] MEDS ORDERED: CLON-465 PO (12:05)
[2021-07-04] MEDS ORDERED: FURO40 PO (12:05)
[2021-07-04] MEDS ORDERED: HYDR25TA84 PO (12:05)
[2021-07-04] MEDS ORDERED: LABE100T51 PO (12:06)
[2021-07-04] MEDS ORDERED: LOSA-382 PO (12:06)
[2021-07-05 06:41] LABS: GLUCOMETER DEV NAME(LOC) 6N.2; GLUCOSE,POINT OF CARE 270 MG/DL (70-110)
== END 2021-07-04 15:00 | DRG 684 ==
LOC: 6S 14:45
PROVIDERS: ADMIT Internal Medicine; ATTEND Internal Medicine
PROC: 0TB13ZX Excision of Left Kidney, Percutaneous Approach, Diagnostic (ICD-10-PCS; principal; 2021-07-02)
DX: N17.9 Acute kidney failure, unspecified (principal); E11.21 Type 2 diabetes mellitus with diabetic nephropathy; E11.319 Type 2 diabetes mellitus with unspecified diabetic retinopathy without macular edema; D63.8 Anemia in other chronic diseases classified elsewhere; R60.0 Localized edema; Z20.822 Contact with and (suspected) exposure to COVID-19; I10 Essential (primary) hypertension; M79.89 Other specified soft tissue disorders; Z79.4 Long term (current) use of insulin; Z79.899 Other long term (current) drug therapy; Z83.3 Family history of diabetes mellitus
CPT/HCPCS: 50200; 76770; 76942; 80048; 81001; 81002; 82043; 82570; 82728; 82962; 83036; 83540; 83550; 83735; 84100; 84156; 84300; 84540; 85025; 85610; 85730; 86038; 86592; 86706; 86803; 87086; 87340; 87389; 88300; J1644; J2250; J2310; J3010; J3480; J3490; J7030